=== PATIENT | male | born 1955 | race Caucasian/White ===

== ENCOUNTER 2016-10-23 07:49 | Inpatient (IN) | payer MEDICAID ==
[~2016-10-23] VITALS: Ht 172.7 cm; Wt 60.9 kg
[~2016-10-23 07:49] MED LIST: DIVA500T69 PO; IPRA4AER IH; OMEP20 PO; RISP3 PO
[2016-10-23] MEDS ORDERED: DiphenhydrAMINE HCL 50 MG/ML VIAL IM ONE (08:15)
[2016-10-23] MEDS ORDERED: LORazepam 2 MG/ML VIAL IM ONE (08:15)
[2016-10-23] MEDS ORDERED: HALOPERIDOL LACTATE 5 MG/ML VIAL IM ONE (08:15)
[2016-10-23] MEDS ORDERED: ZOLPIDEM TARTRATE 10 MG TABLET PO PRN (08:30)
[2016-10-23 09:20] LABS: BASOPHILS # (AUTO) 0.01 K/uL (0.00-0.20); BASOPHILS % (AUTO) 0.1 % (0.0-2.0); EOSINOPHILS # (AUTO) 0.12 K/uL (0.00-0.70); EOSINOPHILS % (AUTO) 1.82 % (1.0-6.0); HEMATOCRIT 43.7 % (41-53); HEMOGLOBIN 14.5 g/dL (13.5-17.5); LYMPHOCYTES # (AUTO) 0.8 K/uL (1.0-4.8); LYMPHOCYTES % (AUTO) 11.5 % (22.0-44.0); MEAN CORPUSCULAR HGB CONC 33.2 G/dL (31.0-37.0); MEAN CORPUSCULAR VOLUME 88 fL (80-100); MONOCYTES # (AUTO) 0.5 K/uL (0.1-1.0); NEUTROPHILS # (AUTO) 5.2 K/uL (1.8-7.7); NEUTROPHILS % (AUTO) 79.6 % (40.0-70.0); PLATELET COUNT (AUTO) 213 K/uL (150-450); RED BLOOD CELL COUNT(AUTO) 4.99 MIL/uL (4.50-5.90); RED CELL DISTRIBUTION WIDTH 14.9 % (11.5-14.5); WHITE BLOOD COUNT (AUTO) 6.6 K/uL (4.5-11.0)
[2016-10-23 09:31] LABS: ANION GAP 8 mmol/L (8-16); CALCIUM, TOTAL 8.7 mg/dL (8.8-10.5); CARBON DIOXIDE 27 mmol/L (22-29); CHLORIDE 103 mmol/L (98-107); GLOMERULAR FILTR. RATE CALC > 60 mL/min (>60); POTASSIUM 4.4 mmol/L (3.5-5.1); SODIUM SERUM 138 mmol/L (136-145); UREA NITROGEN, BLOOD 17 mg/dL (7-18)
[2016-10-23 09:37] LABS: ALANINE AMINOTRANSFERASE 26 U/L (12-78); ALBUMIN 3.1 g/dL (3.4-5.0); ASPARTATE AMINOTRANSFERASE 23 U/L (15-37); BILIRUBIN,TOTAL 0.4 mg/dL (0.1-1.0); TOTAL PROTEIN, SERUM 7.4 g/dL (6.4-8.2)
[2016-10-24] MEDS ORDERED: LORazepam 2 MG/ML VIAL IM ONE (11:00)
[2016-10-24] MEDS ORDERED: DiphenhydrAMINE HCL 50 MG/ML VIAL IM ONE (11:00)
[2016-10-24] MEDS ORDERED: HALOPERIDOL LACTATE 5 MG/ML VIAL IM ONE (11:00)
[2016-10-24 17:10] VITALS: BP 138/79
[2016-10-24] MEDS: ALBUTEROL SULFATE/IPRATROPIUM 100-20 MCG/SPRAY 4 GM INHALER IH SCH (20:35)
[2016-10-24] MEDS: DIVALPROEX SODIUM 500 MG ER TABLET PO SCH (20:35)
[2016-10-25 08:00] VITALS: BP_SYST 118; BP_SYST 125; BP_DIAS 78; BP_DIAS 88
[2016-10-25] MEDS: HALOPERIDOL 5 MG TABLET PO PRN (08:42)
[2016-10-25] MEDS: OMEPRAZOLE 20 MG CAPSULE PO SCH (08:42)
[2016-10-25] MEDS: LORazepam 2 MG TABLET PO PRN (08:42)
[2016-10-25] MEDS: NICOTINE 7 MG/24 HOUR PATCH TD SCH ×2 (08:44→09:00)
[2016-10-25] MEDS: ALBUTEROL SULFATE/IPRATROPIUM 100-20 MCG/SPRAY 4 GM INHALER IH SCH ×2 (12:33→20:40)
[2016-10-25] MEDS: RisperiDONE 2 MG TABLET PO SCH ×2 (12:34→16:30)
[2016-10-25 16:41] VITALS: BP 114/70
[2016-10-25] MEDS: DIVALPROEX SODIUM 500 MG ER TABLET PO SCH (20:40)
[2016-10-26] MEDS ORDERED: BENZOCAINE 10% 7 GM GEL TP PRN ×2 (07:44→07:45)
[2016-10-26 08:20] VITALS: BP 116/84
[2016-10-26] MEDS: ALBUTEROL SULFATE/IPRATROPIUM 100-20 MCG/SPRAY 4 GM INHALER IH SCH ×3 (09:00→20:51)
[2016-10-26] MEDS: NICOTINE 7 MG/24 HOUR PATCH TD SCH ×2 (09:00→09:29)
[2016-10-26] MEDS: OMEPRAZOLE 20 MG CAPSULE PO SCH (09:29)
[2016-10-26] MEDS: RisperiDONE 2 MG TABLET PO SCH ×2 (09:29→18:14)
[2016-10-26 16:00] VITALS: BP 118/76
[2016-10-26] MEDS: DIVALPROEX SODIUM 500 MG ER TABLET PO SCH (20:52)
[2016-10-27] MEDS: OMEPRAZOLE 20 MG CAPSULE PO SCH (09:05)
[2016-10-27] MEDS: RisperiDONE 2 MG TABLET PO SCH ×2 (09:06→17:55)
[2016-10-27] MEDS: NICOTINE 7 MG/24 HOUR PATCH TD SCH (09:06)
[2016-10-27] MEDS: LORazepam 2 MG TABLET PO PRN (09:07)
[2016-10-27] MEDS: ALBUTEROL SULFATE/IPRATROPIUM 100-20 MCG/SPRAY 4 GM INHALER IH SCH ×2 (09:08→20:08)
[2016-10-27 09:19] VITALS: BP 128/55
[2016-10-27 16:00] VITALS: BP 121/72
[2016-10-27] MEDS: DIVALPROEX SODIUM 500 MG ER TABLET PO SCH (20:08)
[2016-10-28] MEDS: RisperiDONE 2 MG TABLET PO SCH ×2 (08:32→17:08)
[2016-10-28] MEDS: OMEPRAZOLE 20 MG CAPSULE PO SCH (08:32)
[2016-10-28] MEDS: NICOTINE 7 MG/24 HOUR PATCH TD SCH (08:34)
[2016-10-28] MEDS: LORazepam 2 MG TABLET PO PRN (08:35)
[2016-10-28] MEDS: ALBUTEROL SULFATE/IPRATROPIUM 100-20 MCG/SPRAY 4 GM INHALER IH SCH ×2 (08:38→21:41)
[2016-10-28 09:11] VITALS: BP 124/78
[2016-10-28 16:10] VITALS: BP 121/75
[2016-10-28] MEDS: DIVALPROEX SODIUM 500 MG ER TABLET PO SCH (21:41)
[2016-10-29 08:04] VITALS: BP 114/79
[2016-10-29] MEDS: OMEPRAZOLE 20 MG CAPSULE PO SCH (08:35)
[2016-10-29] MEDS: RisperiDONE 2 MG TABLET PO SCH ×2 (08:35→17:12)
[2016-10-29] MEDS: ALBUTEROL SULFATE/IPRATROPIUM 100-20 MCG/SPRAY 4 GM INHALER IH SCH ×2 (08:35→21:03)
[2016-10-29] MEDS: LORazepam 2 MG TABLET PO PRN (08:37)
[2016-10-29] MEDS: NICOTINE 7 MG/24 HOUR PATCH TD SCH (09:00)
[2016-10-29] MEDS: DIVALPROEX SODIUM 500 MG ER TABLET PO SCH (21:03)
[2016-10-30 01:27] VITALS: BP 127/87
[2016-10-30 09:33] VITALS: BP 109/76
[2016-10-30] MEDS: ALBUTEROL SULFATE/IPRATROPIUM 100-20 MCG/SPRAY 4 GM INHALER IH SCH ×2 (10:09→21:01)
[2016-10-30] MEDS: NICOTINE 7 MG/24 HOUR PATCH TD SCH (10:09)
[2016-10-30] MEDS: OMEPRAZOLE 20 MG CAPSULE PO SCH (10:10)
[2016-10-30] MEDS: RisperiDONE 2 MG TABLET PO SCH ×2 (10:10→16:39)
[2016-10-30] MEDS: LORazepam 2 MG TABLET PO PRN (13:15)
[2016-10-30] MEDS: HALOPERIDOL 5 MG TABLET PO PRN (13:15)
[2016-10-30 17:25] VITALS: BP 106/78
[2016-10-30] MEDS: DIVALPROEX SODIUM 500 MG ER TABLET PO SCH (21:02)
[2016-10-31] MEDS: ALBUTEROL SULFATE/IPRATROPIUM 100-20 MCG/SPRAY 4 GM INHALER IH SCH ×2 (09:00→20:44)
[2016-10-31] MEDS: RisperiDONE 2 MG TABLET PO SCH ×2 (09:15→16:46)
[2016-10-31] MEDS: LORazepam 2 MG TABLET PO PRN (09:15)
[2016-10-31] MEDS: NICOTINE 7 MG/24 HOUR PATCH TD SCH (09:15)
[2016-10-31] MEDS: OMEPRAZOLE 20 MG CAPSULE PO SCH (09:15)
[2016-10-31] MEDS: HALOPERIDOL 5 MG TABLET PO PRN (09:15)
[2016-10-31 09:18] VITALS: BP 124/84
[2016-10-31 16:15] VITALS: BP 142/84
[2016-10-31] MEDS: DIVALPROEX SODIUM 500 MG ER TABLET PO SCH (20:44)
[2016-11-01 08:00] VITALS: BP 96/75
[2016-11-01] MEDS: NICOTINE 7 MG/24 HOUR PATCH TD SCH (09:00)
[2016-11-01] MEDS: ALBUTEROL SULFATE/IPRATROPIUM 100-20 MCG/SPRAY 4 GM INHALER IH SCH ×2 (09:00→20:24)
[2016-11-01] MEDS: OMEPRAZOLE 20 MG CAPSULE PO SCH (09:17)
[2016-11-01] MEDS: RisperiDONE 2 MG TABLET PO SCH ×2 (09:17→16:32)
[2016-11-01 10:43] VITALS: BP 118/76
[2016-11-01] MEDS: LORazepam 2 MG TABLET PO PRN (10:44)
[2016-11-01] MEDS: HALOPERIDOL 5 MG TABLET PO PRN (10:44)
[2016-11-01 17:02] VITALS: BP 114/78
[2016-11-01] MEDS: DIVALPROEX SODIUM 500 MG ER TABLET PO SCH (20:25)
[2016-11-02 08:13] VITALS: BP 103/75
[2016-11-02] MEDS: ALBUTEROL SULFATE/IPRATROPIUM 100-20 MCG/SPRAY 4 GM INHALER IH SCH ×2 (09:00→20:49)
[2016-11-02] MEDS: RisperiDONE 2 MG TABLET PO SCH ×2 (09:32→16:41)
[2016-11-02] MEDS: OMEPRAZOLE 20 MG CAPSULE PO SCH (09:32)
[2016-11-02] MEDS: HALOPERIDOL 5 MG TABLET PO PRN (09:32)
[2016-11-02] MEDS: NICOTINE 7 MG/24 HOUR PATCH TD SCH (09:32)
[2016-11-02] MEDS: LORazepam 2 MG TABLET PO PRN (09:32)
[2016-11-02 16:00] VITALS: BP 126/74
[2016-11-02] MEDS: DIVALPROEX SODIUM 500 MG ER TABLET PO SCH (20:49)
[2016-11-03 08:36] VITALS: BP 111/75
[2016-11-03] MEDS: ALBUTEROL SULFATE/IPRATROPIUM 100-20 MCG/SPRAY 4 GM INHALER IH SCH ×2 (08:42→20:28)
[2016-11-03] MEDS: RisperiDONE 2 MG TABLET PO SCH ×2 (08:42→18:30)
[2016-11-03] MEDS: OMEPRAZOLE 20 MG CAPSULE PO SCH (08:42)
[2016-11-03] MEDS: NICOTINE 7 MG/24 HOUR PATCH TD SCH (08:45)
[2016-11-03] MEDS: HALOPERIDOL 5 MG TABLET PO PRN (08:50)
[2016-11-03] MEDS: LORazepam 2 MG TABLET PO PRN (08:50)
[2016-11-03 16:00] VITALS: BP 121/76
[2016-11-03] MEDS: DIVALPROEX SODIUM 500 MG ER TABLET PO SCH (20:28)
[2016-11-04 08:00] VITALS: BP_SYST 74
[2016-11-04] MEDS: OMEPRAZOLE 20 MG CAPSULE PO SCH (08:16)
[2016-11-04] MEDS: RisperiDONE 2 MG TABLET PO SCH ×2 (08:16→17:28)
[2016-11-04] MEDS: NICOTINE 7 MG/24 HOUR PATCH TD SCH (09:00)
[2016-11-04] MEDS: ALBUTEROL SULFATE/IPRATROPIUM 100-20 MCG/SPRAY 4 GM INHALER IH SCH ×2 (09:00→21:35)
[2016-11-04 10:40] VITALS: BP 104/72
[2016-11-04] MEDS: HALOPERIDOL 5 MG TABLET PO PRN (12:57)
[2016-11-04] MEDS: LORazepam 2 MG TABLET PO PRN ×2 (12:57→17:28)
[2016-11-04 16:30] VITALS: BP 112/72
[2016-11-04] MEDS: DIVALPROEX SODIUM 500 MG ER TABLET PO SCH (21:35)
[2016-11-05 08:15] VITALS: BP 112/74
[2016-11-05] MEDS: OMEPRAZOLE 20 MG CAPSULE PO SCH (08:57)
[2016-11-05] MEDS: RisperiDONE 2 MG TABLET PO SCH ×2 (08:57→16:34)
[2016-11-05] MEDS: NICOTINE 7 MG/24 HOUR PATCH TD SCH (09:00)
[2016-11-05] MEDS: ALBUTEROL SULFATE/IPRATROPIUM 100-20 MCG/SPRAY 4 GM INHALER IH SCH ×2 (09:00→21:00)
[2016-11-05 16:00] VITALS: BP 123/78
[2016-11-05] MEDS: DIVALPROEX SODIUM 500 MG ER TABLET PO SCH (21:30)
[2016-11-06 08:02] VITALS: BP 123/83
[2016-11-06] MEDS: OMEPRAZOLE 20 MG CAPSULE PO SCH (08:35)
[2016-11-06] MEDS: ALBUTEROL SULFATE/IPRATROPIUM 100-20 MCG/SPRAY 4 GM INHALER IH SCH ×2 (08:35→20:47)
[2016-11-06] MEDS: HALOPERIDOL 5 MG TABLET PO PRN (08:35)
[2016-11-06] MEDS: RisperiDONE 3 MG TABLET PO SCH ×2 (08:35→16:30)
[2016-11-06] MEDS: LORazepam 2 MG TABLET PO PRN (08:35)
[2016-11-06] MEDS: NICOTINE 7 MG/24 HOUR PATCH TD SCH (09:00)
[2016-11-06 16:50] VITALS: BP 162/92
[2016-11-06] MEDS: DIVALPROEX SODIUM 500 MG ER TABLET PO SCH (20:46)
[2016-11-07 08:02] VITALS: BP 130/88
[2016-11-07] MEDS: RisperiDONE 3 MG TABLET PO SCH ×2 (08:34→16:34)
[2016-11-07] MEDS: ALBUTEROL SULFATE/IPRATROPIUM 100-20 MCG/SPRAY 4 GM INHALER IH SCH ×2 (08:34→20:25)
[2016-11-07] MEDS: HALOPERIDOL 5 MG TABLET PO PRN (08:34)
[2016-11-07] MEDS: LORazepam 2 MG TABLET PO PRN (08:34)
[2016-11-07] MEDS: OMEPRAZOLE 20 MG CAPSULE PO SCH (08:34)
[2016-11-07] MEDS: NICOTINE 7 MG/24 HOUR PATCH TD SCH (09:00)
[2016-11-07 16:20] VITALS: BP 129/79
[2016-11-07] MEDS: DIVALPROEX SODIUM 500 MG ER TABLET PO SCH (20:25)
[2016-11-08] MEDS: RisperiDONE 3 MG TABLET PO SCH ×2 (08:40→16:50)
[2016-11-08] MEDS: OMEPRAZOLE 20 MG CAPSULE PO SCH (08:40)
[2016-11-08 08:44] VITALS: BP 112/68
[2016-11-08] MEDS: ALBUTEROL SULFATE/IPRATROPIUM 100-20 MCG/SPRAY 4 GM INHALER IH SCH ×2 (09:00→20:40)
[2016-11-08] MEDS: NICOTINE 7 MG/24 HOUR PATCH TD SCH (09:00)
[2016-11-08 16:00] VITALS: BP 106/70
[2016-11-08] MEDS: DIVALPROEX SODIUM 500 MG ER TABLET PO SCH (20:40)
[2016-11-09] MEDS: RisperiDONE 3 MG TABLET PO SCH ×2 (08:47→17:37)
[2016-11-09] MEDS: ALBUTEROL SULFATE/IPRATROPIUM 100-20 MCG/SPRAY 4 GM INHALER IH SCH ×2 (08:47→21:00)
[2016-11-09] MEDS: OMEPRAZOLE 20 MG CAPSULE PO SCH (08:47)
[2016-11-09] MEDS: NICOTINE 7 MG/24 HOUR PATCH TD SCH (09:08)
[2016-11-09 09:53] VITALS: BP 92/65
[2016-11-09] MEDS: DIVALPROEX SODIUM 500 MG ER TABLET PO SCH ×2 (13:25→21:00)
[2016-11-09 16:15] VITALS: BP 110/73
[2016-11-09] MEDS: LORazepam 2 MG TABLET PO PRN (19:04)
[2016-11-09] MEDS: HALOPERIDOL 5 MG TABLET PO PRN (19:04)
[2016-11-10 08:45] VITALS: BP 131/102
[2016-11-10] MEDS: NICOTINE 7 MG/24 HOUR PATCH TD SCH (09:00)
[2016-11-10] MEDS: OMEPRAZOLE 20 MG CAPSULE PO SCH (09:05)
[2016-11-10] MEDS: DIVALPROEX SODIUM 500 MG ER TABLET PO SCH ×2 (09:05→21:13)
[2016-11-10] MEDS: ALBUTEROL SULFATE/IPRATROPIUM 100-20 MCG/SPRAY 4 GM INHALER IH SCH ×2 (09:06→21:13)
[2016-11-10] MEDS: RisperiDONE 3 MG TABLET PO SCH ×2 (09:06→17:47)
[2016-11-10 16:00] VITALS: BP 121/72
[2016-11-10] MEDS: LORazepam 2 MG TABLET PO PRN (17:47)
[2016-11-11] MEDS: RisperiDONE 3 MG TABLET PO SCH ×2 (08:43→16:03)
[2016-11-11] MEDS: OMEPRAZOLE 20 MG CAPSULE PO SCH (08:43)
[2016-11-11] MEDS: DIVALPROEX SODIUM 500 MG ER TABLET PO SCH ×2 (08:43→20:18)
[2016-11-11] MEDS: ALBUTEROL SULFATE/IPRATROPIUM 100-20 MCG/SPRAY 4 GM INHALER IH SCH ×2 (08:44→20:17)
[2016-11-11] MEDS: NICOTINE 7 MG/24 HOUR PATCH TD SCH (08:48)
[2016-11-11 16:34] VITALS: BP 116/77
[2016-11-12 09:06] VITALS: BP 115/82
[2016-11-12] MEDS: ALBUTEROL SULFATE/IPRATROPIUM 100-20 MCG/SPRAY 4 GM INHALER IH SCH ×2 (09:17→21:43)
[2016-11-12] MEDS: DIVALPROEX SODIUM 500 MG ER TABLET PO SCH ×2 (09:17→21:44)
[2016-11-12] MEDS: OMEPRAZOLE 20 MG CAPSULE PO SCH (09:17)
[2016-11-12] MEDS: RisperiDONE 3 MG TABLET PO SCH ×2 (09:17→17:15)
[2016-11-12] MEDS: NICOTINE 7 MG/24 HOUR PATCH TD SCH (09:24)
[2016-11-12 16:00] VITALS: BP 103/71
[2016-11-13 08:20] VITALS: BP 109/77
[2016-11-13] MEDS: ALBUTEROL SULFATE/IPRATROPIUM 100-20 MCG/SPRAY 4 GM INHALER IH SCH ×2 (10:16→20:24)
[2016-11-13] MEDS: NICOTINE 7 MG/24 HOUR PATCH TD SCH (10:16)
[2016-11-13] MEDS: DIVALPROEX SODIUM 500 MG ER TABLET PO SCH ×2 (10:16→20:24)
[2016-11-13] MEDS: LORazepam 2 MG TABLET PO PRN (10:16)
[2016-11-13] MEDS: RisperiDONE 3 MG TABLET PO SCH ×2 (10:16→17:00)
[2016-11-13] MEDS: OMEPRAZOLE 20 MG CAPSULE PO SCH (10:16)
[2016-11-13] MEDS: HALOPERIDOL 5 MG TABLET PO PRN (10:16)
[2016-11-13 16:00] VITALS: BP 119/71
[2016-11-14 08:00] VITALS: BP 90/70
[2016-11-14] MEDS: ALBUTEROL SULFATE/IPRATROPIUM 100-20 MCG/SPRAY 4 GM INHALER IH SCH ×2 (09:43→20:34)
[2016-11-14] MEDS: NICOTINE 7 MG/24 HOUR PATCH TD SCH (09:43)
[2016-11-14] MEDS: OMEPRAZOLE 20 MG CAPSULE PO SCH (09:44)
[2016-11-14] MEDS: RisperiDONE 3 MG TABLET PO SCH ×2 (09:44→16:28)
[2016-11-14] MEDS: HALOPERIDOL 5 MG TABLET PO PRN (09:44)
[2016-11-14] MEDS: LORazepam 2 MG TABLET PO PRN (09:44)
[2016-11-14] MEDS: DIVALPROEX SODIUM 500 MG ER TABLET PO SCH ×2 (09:44→20:34)
[2016-11-14 16:34] VITALS: BP 132/82
[2016-11-15] MEDS: ALBUTEROL SULFATE/IPRATROPIUM 100-20 MCG/SPRAY 4 GM INHALER IH SCH ×2 (09:46→21:43)
[2016-11-15] MEDS: RisperiDONE 3 MG TABLET PO SCH ×2 (09:46→18:00)
[2016-11-15] MEDS: OMEPRAZOLE 20 MG CAPSULE PO SCH (09:47)
[2016-11-15] MEDS: DIVALPROEX SODIUM 500 MG ER TABLET PO SCH ×2 (09:47→21:43)
[2016-11-15] MEDS: NICOTINE 7 MG/24 HOUR PATCH TD SCH (09:51)
[2016-11-15 16:27] VITALS: BP 116/73
[2016-11-16 09:06] VITALS: BP 102/76
[2016-11-16] MEDS: OMEPRAZOLE 20 MG CAPSULE PO SCH (10:41)
[2016-11-16] MEDS: DIVALPROEX SODIUM 500 MG ER TABLET PO SCH ×2 (10:42→22:54)
[2016-11-16] MEDS: RisperiDONE 3 MG TABLET PO SCH ×2 (10:42→16:21)
[2016-11-16] MEDS: ALBUTEROL SULFATE/IPRATROPIUM 100-20 MCG/SPRAY 4 GM INHALER IH SCH ×2 (10:42→22:53)
[2016-11-16] MEDS: NICOTINE 7 MG/24 HOUR PATCH TD SCH (10:45)
[2016-11-16 16:00] VITALS: BP 104/72
[2016-11-16] MEDS ORDERED: BENZOCAINE 10% 7 GM GEL TP PRN (16:45)
[2016-11-17 08:47] VITALS: BP 125/88
[2016-11-17] MEDS: OMEPRAZOLE 20 MG CAPSULE PO SCH (09:26)
[2016-11-17] MEDS: DIVALPROEX SODIUM 500 MG ER TABLET PO SCH ×2 (09:26→20:31)
[2016-11-17] MEDS: RisperiDONE 3 MG TABLET PO SCH ×2 (09:27→17:19)
[2016-11-17] MEDS: NICOTINE 7 MG/24 HOUR PATCH TD SCH (09:27)
[2016-11-17] MEDS: ALBUTEROL SULFATE/IPRATROPIUM 100-20 MCG/SPRAY 4 GM INHALER IH SCH ×2 (09:27→20:31)
[2016-11-17] MEDS: BuPROPion HCL 150 MG SR TABLET PO SCH (09:28)
[2016-11-17 16:44] VITALS: BP 118/78
[2016-11-18 09:45] VITALS: BP 122/87
[2016-11-18] MEDS: BuPROPion HCL 150 MG SR TABLET PO SCH (10:36)
[2016-11-18] MEDS: OMEPRAZOLE 20 MG CAPSULE PO SCH (10:36)
[2016-11-18] MEDS: RisperiDONE 3 MG TABLET PO SCH ×2 (10:36→17:01)
[2016-11-18] MEDS: HALOPERIDOL 5 MG TABLET PO PRN (10:36)
[2016-11-18] MEDS: DIVALPROEX SODIUM 500 MG ER TABLET PO SCH ×2 (10:36→21:31)
[2016-11-18] MEDS: NICOTINE 7 MG/24 HOUR PATCH TD SCH (10:38)
[2016-11-18] MEDS: ALBUTEROL SULFATE/IPRATROPIUM 100-20 MCG/SPRAY 4 GM INHALER IH SCH ×2 (10:38→21:30)
[2016-11-18 16:32] VITALS: BP 124/85
[2016-11-19 08:00] VITALS: BP 132/88
[2016-11-19] MEDS: RisperiDONE 3 MG TABLET PO SCH ×2 (10:47→18:04)
[2016-11-19] MEDS: OMEPRAZOLE 20 MG CAPSULE PO SCH (10:47)
[2016-11-19] MEDS: DIVALPROEX SODIUM 500 MG ER TABLET PO SCH ×2 (10:48→21:40)
[2016-11-19] MEDS: BuPROPion HCL 150 MG SR TABLET PO SCH (10:48)
[2016-11-19] MEDS: NICOTINE 7 MG/24 HOUR PATCH TD SCH (10:48)
[2016-11-19] MEDS: ALBUTEROL SULFATE/IPRATROPIUM 100-20 MCG/SPRAY 4 GM INHALER IH SCH ×2 (10:48→21:41)
[2016-11-19 16:00] VITALS: BP 131/78
[2016-11-20] MEDS: DIVALPROEX SODIUM 500 MG ER TABLET PO SCH ×2 (09:46→20:41)
[2016-11-20] MEDS: RisperiDONE 3 MG TABLET PO SCH ×2 (09:46→16:21)
[2016-11-20] MEDS: ALBUTEROL SULFATE/IPRATROPIUM 100-20 MCG/SPRAY 4 GM INHALER IH SCH ×2 (09:46→20:41)
[2016-11-20] MEDS: BuPROPion HCL 150 MG SR TABLET PO SCH (09:47)
[2016-11-20] MEDS: OMEPRAZOLE 20 MG CAPSULE PO SCH (09:47)
[2016-11-20] MEDS: NICOTINE 7 MG/24 HOUR PATCH TD SCH (09:51)
[2016-11-20 10:06] VITALS: BP 141/88
[2016-11-20 17:06] VITALS: BP 112/73
[2016-11-21] MEDS: DIVALPROEX SODIUM 500 MG ER TABLET PO SCH ×2 (10:10→20:36)
[2016-11-21] MEDS: ALBUTEROL SULFATE/IPRATROPIUM 100-20 MCG/SPRAY 4 GM INHALER IH SCH ×2 (10:10→20:35)
[2016-11-21] MEDS: BuPROPion HCL 150 MG SR TABLET PO SCH (10:10)
[2016-11-21] MEDS: RisperiDONE 3 MG TABLET PO SCH ×2 (10:10→16:32)
[2016-11-21] MEDS: OMEPRAZOLE 20 MG CAPSULE PO SCH (10:10)
[2016-11-21] MEDS: NICOTINE 7 MG/24 HOUR PATCH TD SCH (10:14)
[2016-11-21 12:34] VITALS: BP 104/63
[2016-11-21 16:05] VITALS: BP 125/91
[2016-11-22] MEDS: NICOTINE 7 MG/24 HOUR PATCH TD SCH (09:00)
[2016-11-22 09:29] VITALS: BP 110/73
[2016-11-22] MEDS: OMEPRAZOLE 20 MG CAPSULE PO SCH (09:51)
[2016-11-22] MEDS: ALBUTEROL SULFATE/IPRATROPIUM 100-20 MCG/SPRAY 4 GM INHALER IH SCH ×2 (09:51→22:10)
[2016-11-22] MEDS: DIVALPROEX SODIUM 500 MG ER TABLET PO SCH ×2 (09:51→22:11)
[2016-11-22] MEDS: RisperiDONE 3 MG TABLET PO SCH ×2 (09:51→16:18)
[2016-11-22] MEDS: LORazepam 2 MG TABLET PO PRN (09:51)
[2016-11-22] MEDS: BuPROPion HCL 150 MG SR TABLET PO SCH (09:51)
[2016-11-22] MEDS ORDERED: ACETAMINOPHEN 325 MG TABLET PO PRN (12:45)
[2016-11-22 16:00] VITALS: BP 121/89
[2016-11-23 08:00] VITALS: BP 128/85
[2016-11-23] MEDS: BuPROPion HCL 150 MG SR TABLET PO SCH (08:11)
[2016-11-23] MEDS: LORazepam 2 MG TABLET PO PRN (08:12)
[2016-11-23] MEDS: RisperiDONE 3 MG TABLET PO SCH ×2 (08:12→18:03)
[2016-11-23] MEDS: DIVALPROEX SODIUM 500 MG ER TABLET PO SCH ×2 (08:12→21:01)
[2016-11-23] MEDS: OMEPRAZOLE 20 MG CAPSULE PO SCH (08:12)
[2016-11-23] MEDS: ALBUTEROL SULFATE/IPRATROPIUM 100-20 MCG/SPRAY 4 GM INHALER IH SCH ×2 (08:13→21:00)
[2016-11-23] MEDS: NICOTINE 7 MG/24 HOUR PATCH TD SCH (09:00)
[2016-11-23 16:00] VITALS: BP 130/87
[2016-11-24 07:16] VITALS: BP 149/82
[2016-11-24] MEDS: ALBUTEROL SULFATE/IPRATROPIUM 100-20 MCG/SPRAY 4 GM INHALER IH SCH ×2 (10:39→21:04)
[2016-11-24] MEDS: BuPROPion HCL 150 MG SR TABLET PO SCH (10:40)
[2016-11-24] MEDS: RisperiDONE 4 MG TABLET PO SCH ×2 (10:40→17:19)
[2016-11-24] MEDS: OMEPRAZOLE 20 MG CAPSULE PO SCH (10:40)
[2016-11-24] MEDS: DIVALPROEX SODIUM 500 MG ER TABLET PO SCH ×2 (10:40→21:03)
[2016-11-24] MEDS: NICOTINE 7 MG/24 HOUR PATCH TD SCH (10:40)
[2016-11-24 16:00] VITALS: BP 125/78
[2016-11-25 06:28] VITALS: BP 147/76
[2016-11-25 08:07] VITALS: BP 101/60
[2016-11-25] MEDS: LORazepam 2 MG TABLET PO PRN (08:17)
[2016-11-25] MEDS: OMEPRAZOLE 20 MG CAPSULE PO SCH (08:17)
[2016-11-25] MEDS: RisperiDONE 4 MG TABLET PO SCH ×2 (08:17→16:12)
[2016-11-25] MEDS: DIVALPROEX SODIUM 500 MG ER TABLET PO SCH ×2 (08:17→20:14)
[2016-11-25] MEDS: ALBUTEROL SULFATE/IPRATROPIUM 100-20 MCG/SPRAY 4 GM INHALER IH SCH ×2 (08:18→20:14)
[2016-11-25] MEDS: BuPROPion HCL 150 MG SR TABLET PO SCH (08:23)
[2016-11-25] MEDS: NICOTINE 7 MG/24 HOUR PATCH TD SCH (08:26)
[2016-11-25 16:30] VITALS: BP 117/68
[2016-11-26 08:25] VITALS: BP 113/66
[2016-11-26] MEDS: HALOPERIDOL 5 MG TABLET PO PRN (08:42)
[2016-11-26] MEDS: LORazepam 2 MG TABLET PO PRN (08:42)
[2016-11-26] MEDS: RisperiDONE 4 MG TABLET PO SCH (08:42)
[2016-11-26] MEDS: BuPROPion HCL 150 MG SR TABLET PO SCH (08:42)
[2016-11-26] MEDS: OMEPRAZOLE 20 MG CAPSULE PO SCH (08:42)
[2016-11-26] MEDS: DIVALPROEX SODIUM 500 MG ER TABLET PO SCH (08:42)
[2016-11-26] MEDS: ALBUTEROL SULFATE/IPRATROPIUM 100-20 MCG/SPRAY 4 GM INHALER IH SCH (08:46)
[2016-11-26] MEDS: NICOTINE 7 MG/24 HOUR PATCH TD SCH (08:46)
[2016-11-26] MEDS ORDERED: BUPR150T3 PO (09:11)
[2016-11-26] MEDS ORDERED: DIVA500T69 PO (09:11)
== END 2016-11-26 12:00 | disposition home or self-care (01) | DRG 750 ==
LOC: EMS 07:51 → 3EC 10-24 16:45
PROVIDERS: ADMIT Psychiatry & Neurology Child & Adolescent Psychiatry; ATTEND Psychiatry & Neurology Child & Adolescent Psychiatry
DX: F20.0 Paranoid schizophrenia (principal); J44.9 Chronic obstructive pulmonary disease, unspecified; I10 Essential (primary) hypertension; K21.9 Gastro-esophageal reflux disease without esophagitis; G40.909 Epilepsy, unspecified, not intractable, without status epilepticus; F41.9 Anxiety disorder, unspecified; F17.210 Nicotine dependence, cigarettes, uncomplicated; Z91.14 Patient's other noncompliance with medication regimen; Z59.0 Homelessness; Z79.899 Other long term (current) drug therapy; Z98.890 Other specified postprocedural states; Z87.11 Personal history of peptic ulcer disease
CPT/HCPCS: 87081; 96372; 99285; G0480; J1200; J1630; J2060

== ENCOUNTER 2017-02-21 09:10 | Emergency (ER) | payer MEDICAID ==
[~2017-02-21] VITALS: Ht 170.2 cm; Wt 59.0 kg
[~2017-02-21 09:10] MED LIST changes: +BUPR150T3 PO
[2017-02-21 09:14] VITALS: BP 109/60
[2017-02-21 09:49] LABS: BASOPHILS % (AUTO) 0.4 % (0.0-2.0); EOSINOPHILS % (AUTO) 2.1 % (1.0-6.0); HEMOGLOBIN 16.4 g/dL (13.5-17.5); LYMPHOCYTES # (AUTO) 1.7 K/uL (1.0-4.8); LYMPHOCYTES % (AUTO) 25.3 % (22.0-44.0); MEAN CORPUSCULAR HGB CONC 32.2 G/dL (31.0-37.0); MEAN CORPUSCULAR VOLUME 90 fL (80-100); MONOCYTES # (AUTO) 0.6 K/uL (0.1-1.0); MONOCYTES % (AUTO) 8.5 % (2.0-9.0); NEUTROPHILS # (AUTO) 4.3 K/uL (1.8-7.7); NEUTROPHILS % (AUTO) 63.7 % (40.0-70.0); PLATELET COUNT (AUTO) 250 K/uL (150-450); RED BLOOD CELL COUNT(AUTO) 5.65 MIL/uL (4.50-5.90); RED CELL DISTRIBUTION WIDTH 14.8 % (11.5-14.5); WHITE BLOOD COUNT (AUTO) 6.7 K/uL (4.5-11.0)
[2017-02-21 10:01] LABS: ANION GAP 10 mmol/L (8-16); CALCIUM, TOTAL 9.4 mg/dL (8.8-10.5); CARBON DIOXIDE 28 mmol/L (22-29); CHLORIDE 101 mmol/L (98-107); CREATININE 1.55 mg/dL (0.60-1.30); GLOMERULAR FILTR. RATE CALC 46 mL/min (>60); POTASSIUM 4.1 mmol/L (3.5-5.1); SODIUM SERUM 139 mmol/L (136-145); UREA NITROGEN, BLOOD 23 mg/dL (7-18)
[2017-02-21 10:08] LABS: ALANINE AMINOTRANSFERASE 22 U/L (12-78); ALBUMIN 4.1 g/dL (3.4-5.0); ASPARTATE AMINOTRANSFERASE 18 U/L (15-37); BILIRUBIN,TOTAL 0.6 mg/dL (0.1-1.0); TOTAL PROTEIN, SERUM 8.7 g/dL (6.4-8.2)
[2017-02-21 10:09] LABS: VALPROIC ACID < 3 mcg/mL (50-100)
== END 2017-02-21 11:33 | disposition left against medical advice (07) ==
LOC: EMS 09:13
DX: R10.31 Right lower quadrant pain (principal); K02.9 Dental caries, unspecified; M79.604 Pain in right leg; J44.9 Chronic obstructive pulmonary disease, unspecified; K21.9 Gastro-esophageal reflux disease without esophagitis; F17.210 Nicotine dependence, cigarettes, uncomplicated
CPT/HCPCS: 99284

== ENCOUNTER 2017-02-24 04:42 | Emergency (ER) | payer MEDICAID ==
[~2017-02-24] VITALS: Ht 170.2 cm; Wt 59.1 kg
[2017-02-24 05:27] LABS: APPEARANCE,URINE CLOUDY (CLEAR); GLUCOSE, URINE (UA) NEGATIVE (NEGATIVE); KETONES,URINE TRACE mg/dL (NEGATIVE); LEUKOCYTE ESTERASE ,URINE NEGATIVE (NEGATIVE); OCCULT BLOOD,URINE NEGATIVE (NEGATIVE); PH,URINE 5.5 (5.0-8.0); PROTEIN,URINE POS 1+ (NEGATIVE)
[2017-02-24 05:42] VITALS: BP 144/90
[2017-02-24] MEDS ORDERED: KETOROLAC TROMETHAMINE 30 MG/ML VIAL IM ONE (05:45)
[2017-02-24 05:49] LABS: CALCIUM OXALATE CRYSTALS,UR Many /LPF (None Seen); SQUAMOUS EPITHELIAL CELL,UR Few /LPF (None Seen)
== END 2017-02-24 06:02 | disposition home or self-care (01) ==
LOC: EMS 04:43
DX: N50.811 Right testicular pain (principal); J44.9 Chronic obstructive pulmonary disease, unspecified; K21.9 Gastro-esophageal reflux disease without esophagitis; F20.9 Schizophrenia, unspecified; F17.210 Nicotine dependence, cigarettes, uncomplicated
CPT/HCPCS: 99284

== ENCOUNTER 2017-04-24 15:45 | Emergency (ER) | payer MEDICAID ==
[~2017-04-24] VITALS: Ht 172.7 cm; Wt 59.1 kg
[2017-04-24 15:49] VITALS: BP 114/79
== END 2017-04-24 15:49 | disposition left against medical advice (07) ==
LOC: EMS 15:47
DX: Z00.8 Encounter for other general examination (principal); F20.9 Schizophrenia, unspecified; J44.9 Chronic obstructive pulmonary disease, unspecified; K21.9 Gastro-esophageal reflux disease without esophagitis; F17.210 Nicotine dependence, cigarettes, uncomplicated; Z53.21 Procedure and treatment not carried out due to patient leaving prior to being seen by health care provider

== ENCOUNTER 2017-04-25 18:33 | Emergency (ER) | payer MEDICAID ==
[~2017-04-25] VITALS: Ht 167.6 cm; Wt 72.7 kg
[2017-04-25 19:48] LABS: BASOPHILS # (AUTO) 0.04 K/uL (0.00-0.20); BASOPHILS % (AUTO) 0.6 % (0.0-2.0); EOSINOPHILS # (AUTO) 0.09 K/uL (0.00-0.70); EOSINOPHILS % (AUTO) 1.22 % (1.0-6.0); HEMATOCRIT 43.4 % (41-53); HEMOGLOBIN 14.2 g/dL (13.5-17.5); LYMPHOCYTES # (AUTO) 1.7 K/uL (1.0-4.8); LYMPHOCYTES % (AUTO) 24.6 % (22.0-44.0); MEAN CORPUSCULAR HGB CONC 32.7 G/dL (31.0-37.0); MEAN CORPUSCULAR VOLUME 92 fL (80-100); MONOCYTES # (AUTO) 0.7 K/uL (0.1-1.0); MONOCYTES % (AUTO) 10.2 % (2.0-9.0); NEUTROPHILS # (AUTO) 4.4 K/uL (1.8-7.7); NEUTROPHILS % (AUTO) 63.3 % (40.0-70.0); PLATELET COUNT (AUTO) 215 K/uL (150-450); RED BLOOD CELL COUNT(AUTO) 4.73 MIL/uL (4.50-5.90); RED CELL DISTRIBUTION WIDTH 15.4 % (11.5-14.5)
[2017-04-25 19:53] LABS: ANION GAP 9 mmol/L (8-16); CALCIUM, TOTAL 9.5 mg/dL (8.8-10.5); CARBON DIOXIDE 28 mmol/L (22-29); CHLORIDE 103 mmol/L (98-107); CREATININE 1.58 mg/dL (0.60-1.30); GLOMERULAR FILTR. RATE CALC 45 mL/min (>60); POTASSIUM 3.8 mmol/L (3.5-5.1); SODIUM SERUM 140 mmol/L (136-145); UREA NITROGEN, BLOOD 27 mg/dL (7-18)
[2017-04-25 19:59] LABS: ALANINE AMINOTRANSFERASE 18 U/L (12-78); ALBUMIN 3.6 g/dL (3.4-5.0); ASPARTATE AMINOTRANSFERASE 17 U/L (15-37); BILIRUBIN,TOTAL 0.5 mg/dL (0.1-1.0); TOTAL PROTEIN, SERUM 7.3 g/dL (6.4-8.2)
[2017-04-25] MEDS ORDERED: AMOX TR/POT CLAV 875 MG/125 MG TABLET PO ONE (20:30)
[2017-04-25 21:00] VITALS: BP 133/85
== END 2017-04-25 21:04 | disposition home or self-care (01) ==
LOC: EMS 18:36
DX: S01.502A Unspecified open wound of oral cavity, initial encounter (principal); F15.10 Other stimulant abuse, uncomplicated; F20.0 Paranoid schizophrenia; F17.210 Nicotine dependence, cigarettes, uncomplicated; I10 Essential (primary) hypertension; J44.9 Chronic obstructive pulmonary disease, unspecified; K21.9 Gastro-esophageal reflux disease without esophagitis; X58.XXXA Exposure to other specified factors, initial encounter; Y93.89 Activity, other specified; Y92.89 Other specified places as the place of occurrence of the external cause; Y99.9 Unspecified external cause status
CPT/HCPCS: 36415; 80053; 80307; 85025; 99284; 99406; G0480

== ENCOUNTER 2017-04-26 02:32 | Emergency (ER) | payer MEDICAID | END 2017-04-26 04:01 | disposition left against medical advice (07) | LOC: EMS 02:34 | DX: R44.0 Auditory hallucinations (principal); F20.9 Schizophrenia, unspecified; J44.9 Chronic obstructive pulmonary disease, unspecified; K21.9 Gastro-esophageal reflux disease without esophagitis; F17.210 Nicotine dependence, cigarettes, uncomplicated; Z53.21 Procedure and treatment not carried out due to patient leaving prior to being seen by health care provider ==

== ENCOUNTER 2017-04-26 07:56 | Emergency (ER) | payer MEDICAID ==
[~2017-04-26] VITALS: Ht 170.2 cm; Wt 66.0 kg
[2017-04-26 09:31] LABS: BASOPHILS # (AUTO) 0.02 K/uL (0.00-0.20); BASOPHILS % (AUTO) 0.4 % (0.0-2.0); EOSINOPHILS # (AUTO) 0.12 K/uL (0.00-0.70); EOSINOPHILS % (AUTO) 2.69 % (1.0-6.0); HEMATOCRIT 43.9 % (41-53); HEMOGLOBIN 14.4 g/dL (13.5-17.5); LYMPHOCYTES # (AUTO) 1.1 K/uL (1.0-4.8); LYMPHOCYTES % (AUTO) 24.1 % (22.0-44.0); MEAN CORPUSCULAR HGB CONC 32.9 G/dL (31.0-37.0); MEAN CORPUSCULAR VOLUME 91 fL (80-100); MONOCYTES # (AUTO) 0.5 K/uL (0.1-1.0); MONOCYTES % (AUTO) 10.7 % (2.0-9.0); NEUTROPHILS # (AUTO) 2.8 K/uL (1.8-7.7); NEUTROPHILS % (AUTO) 62.2 % (40.0-70.0); PLATELET COUNT (AUTO) 210 K/uL (150-450); RED BLOOD CELL COUNT(AUTO) 4.81 MIL/uL (4.50-5.90); RED CELL DISTRIBUTION WIDTH 15.4 % (11.5-14.5); WHITE BLOOD COUNT (AUTO) 4.6 K/uL (4.5-11.0)
[2017-04-26 09:50] LABS: ANION GAP 5 mmol/L (8-16); CARBON DIOXIDE 30 mmol/L (22-29); CHLORIDE 104 mmol/L (98-107); CREATININE 1.43 mg/dL (0.60-1.30); GLOMERULAR FILTR. RATE CALC 50 mL/min (>60); POTASSIUM 4.3 mmol/L (3.5-5.1); SODIUM SERUM 139 mmol/L (136-145); UREA NITROGEN, BLOOD 25 mg/dL (7-18)
[2017-04-26 09:56] LABS: ALANINE AMINOTRANSFERASE 16 U/L (12-78); ALBUMIN 3.5 g/dL (3.4-5.0); ASPARTATE AMINOTRANSFERASE 19 U/L (15-37); BILIRUBIN,TOTAL 0.6 mg/dL (0.1-1.0); TOTAL PROTEIN, SERUM 7.2 g/dL (6.4-8.2)
[2017-04-26] MEDS ORDERED: LIDOCAINE HCL/PF 1% 2 ML VIAL IM ONE (13:15)
[2017-04-26] MEDS ORDERED: CefTRIAXone SODIUM 1 GM/VIAL IM ONE (13:15)
[2017-04-26] MEDS ORDERED: OxyCODONE HCL/ACETAMINOPHEN 5-325 MG TABLET PO ONE (13:15)
[2017-04-26 13:51] VITALS: BP 114/77
== END 2017-04-26 14:12 | disposition home or self-care (01) ==
LOC: EMS 07:58
DX: S01.512A Laceration without foreign body of oral cavity, initial encounter (principal); F20.0 Paranoid schizophrenia; J44.9 Chronic obstructive pulmonary disease, unspecified; K21.9 Gastro-esophageal reflux disease without esophagitis; F17.210 Nicotine dependence, cigarettes, uncomplicated; X58.XXXA Exposure to other specified factors, initial encounter; Y93.89 Activity, other specified; Y92.89 Other specified places as the place of occurrence of the external cause; Y99.8 Other external cause status
CPT/HCPCS: 36415; 80053; 85025; 96372; 99284; G0480; J0696; J3490

== ENCOUNTER 2017-06-26 14:28 | Emergency (ER) | payer MEDICAID ==
[~2017-06-26] VITALS: Ht 170.2 cm; Wt 63.6 kg
[2017-06-26] MEDS ORDERED: CeFAZolin 2 GM/DEXTROSE 50 ML IV ONE (15:00)
[2017-06-26] MEDS ORDERED: SODIUM CHLORIDE 0.9% 1,000 ML IV ONE (15:00)
[2017-06-26] MEDS ORDERED: DEXAMETHASONE SOD PHOS 4 MG/ML 5 ML VIAL IVP ONE (15:00)
[2017-06-26] MEDS ORDERED: SODIUM CHLORIDE 0.9% 100 ML ONE (15:06)
[2017-06-26] MEDS ORDERED: IOVERSOL 350 MG/ML 100 ML VIAL ONE (15:06)
[2017-06-26] MEDS ORDERED: CLINDAMYCIN 600 MG/D5% WATER 50 ML IV ONE (15:15)
[2017-06-26 15:24] LABS: BASOPHILS % (AUTO) 0.3 % (0.0-2.0); EOSINOPHILS % (AUTO) 1.9 % (1.0-6.0); HEMATOCRIT 42.2 % (41-53); HEMOGLOBIN 14.4 g/dL (13.5-17.5); LYMPHOCYTES # (AUTO) 1.3 K/uL (1.0-4.8); LYMPHOCYTES % (AUTO) 16.9 % (22.0-44.0); MEAN CORPUSCULAR HEMOGLOBIN 30.9 pg (26.0-34.0); MEAN CORPUSCULAR VOLUME 91 fL (80-100); MONOCYTES # (AUTO) 0.7 K/uL (0.1-1.0); NEUTROPHILS # (AUTO) 5.6 K/uL (1.8-7.7); NEUTROPHILS % (AUTO) 71.9 % (40.0-70.0); PLATELET COUNT (AUTO) 265 K/uL (150-450); RED BLOOD CELL COUNT(AUTO) 4.64 MIL/uL (4.50-5.90); RED CELL DISTRIBUTION WIDTH 13.9 % (11.5-14.5); WHITE BLOOD COUNT (AUTO) 7.9 K/uL (4.5-11.0)
[2017-06-26 15:34] LABS: ANION GAP 5 mmol/L (8-16); CALCIUM, TOTAL 8.8 mg/dL (8.8-10.5); CARBON DIOXIDE 32 mmol/L (22-29); CHLORIDE 103 mmol/L (98-107); CREATININE 1.15 mg/dL (0.60-1.30); GLOMERULAR FILTR. RATE CALC > 60 mL/min (>60); POTASSIUM 3.1 mmol/L (3.5-5.1); SODIUM SERUM 140 mmol/L (136-145); UREA NITROGEN, BLOOD 17 mg/dL (7-18)
[2017-06-26 15:38] LABS: ALANINE AMINOTRANSFERASE 22 U/L (12-78); ALBUMIN 3.6 g/dL (3.4-5.0); ASPARTATE AMINOTRANSFERASE 23 U/L (15-37); BILIRUBIN,TOTAL 0.4 mg/dL (0.1-1.0); TOTAL PROTEIN, SERUM 7.7 g/dL (6.4-8.2)
[2017-06-26 16:44] VITALS: BP 155/108
== END 2017-06-26 18:11 | disposition short-term general hospital (02) ==
LOC: EMS 14:31
DX: S01.512D Laceration without foreign body of oral cavity, subsequent encounter (principal); C02.9 Malignant neoplasm of tongue, unspecified; K14.0 Glossitis; F20.9 Schizophrenia, unspecified; K21.9 Gastro-esophageal reflux disease without esophagitis; J44.9 Chronic obstructive pulmonary disease, unspecified; F17.210 Nicotine dependence, cigarettes, uncomplicated; X58.XXXD Exposure to other specified factors, subsequent encounter; Y92.89 Other specified places as the place of occurrence of the external cause; Y99.8 Other external cause status
CPT/HCPCS: 36415; 70491; 80053; 85025; 96365; 96375; 99285; 99406; G0480; J0690; J1100; J3490; J7030; J7050; Q9967

== ENCOUNTER 2017-06-29 13:43 | Emergency (ER) | payer MEDICAID ==
[~2017-06-29] VITALS: Ht 172.7 cm; Wt 61.8 kg
[2017-06-29 14:15] VITALS: BP 102/66
== END 2017-06-29 14:20 | disposition left against medical advice (07) ==
LOC: EMS 13:44
DX: S01.502A Unspecified open wound of oral cavity, initial encounter (principal); F20.0 Paranoid schizophrenia; F41.9 Anxiety disorder, unspecified; J44.9 Chronic obstructive pulmonary disease, unspecified; K21.9 Gastro-esophageal reflux disease without esophagitis; F17.210 Nicotine dependence, cigarettes, uncomplicated; X58.XXXA Exposure to other specified factors, initial encounter; Y93.89 Activity, other specified; Y92.89 Other specified places as the place of occurrence of the external cause; Y99.8 Other external cause status
CPT/HCPCS: 99284

== ENCOUNTER 2017-06-29 17:46 | Emergency (ER) | payer MEDICAID ==
[~2017-06-29] VITALS: Ht 162.6 cm; Wt 51.4 kg
[2017-06-29] MEDS ORDERED: MORPHINE SULFATE 4 MG/ML SYRINGE IVP ONE ×2 (19:30→22:30)
[2017-06-29] MEDS ORDERED: ONDANSETRON HCL 4 MG/2 ML VIAL IVP ONE (19:30)
[2017-06-29 19:53] LABS: BASOPHILS % (AUTO) 0.3 % (0.0-2.0); EOSINOPHILS % (AUTO) 1.1 % (1.0-6.0); HEMATOCRIT 41.9 % (41-53); HEMOGLOBIN 14.2 g/dL (13.5-17.5); LYMPHOCYTES # (AUTO) 1.2 K/uL (1.0-4.8); LYMPHOCYTES % (AUTO) 11.2 % (22.0-44.0); MEAN CORPUSCULAR HEMOGLOBIN 30.8 pg (26.0-34.0); MEAN CORPUSCULAR HGB CONC 33.8 G/dL (31.0-37.0); MEAN CORPUSCULAR VOLUME 91 fL (80-100); MONOCYTES % (AUTO) 9.8 % (2.0-9.0); NEUTROPHILS # (AUTO) 8.2 K/uL (1.8-7.7); NEUTROPHILS % (AUTO) 77.6 % (40.0-70.0); PLATELET COUNT (AUTO) 271 K/uL (150-450); RED CELL DISTRIBUTION WIDTH 14.1 % (11.5-14.5); WHITE BLOOD COUNT (AUTO) 10.6 K/uL (4.5-11.0)
[2017-06-29 20:03] LABS: CALCIUM, TOTAL 9.5 mg/dL (8.8-10.5); CREATININE 1.53 mg/dL (0.60-1.30); POTASSIUM 3.4 mmol/L (3.5-5.1)
[2017-06-29 20:10] LABS: ALBUMIN 3.6 g/dL (3.4-5.0); BILIRUBIN,TOTAL 0.4 mg/dL (0.1-1.0); TOTAL PROTEIN, SERUM 7.8 g/dL (6.4-8.2)
[2017-06-29] MEDS ORDERED: KETOROLAC TROMETHAMINE 30 MG/ML VIAL IVP ONE (21:00)
[2017-06-29 22:46] VITALS: BP 118/60
== END 2017-06-29 23:14 | disposition short-term general hospital (02) ==
LOC: EMS 17:49
DX: K14.8 Other diseases of tongue (principal); F20.0 Paranoid schizophrenia; R06.02 Shortness of breath; J44.9 Chronic obstructive pulmonary disease, unspecified; K21.9 Gastro-esophageal reflux disease without esophagitis; F17.210 Nicotine dependence, cigarettes, uncomplicated
CPT/HCPCS: 36415; 71010; 80053; 85025; 87040; 96374; 96375; 96376; 99285; J1885; J2270; J2405

== ENCOUNTER 2017-07-09 18:01 | Emergency (ER) | payer MEDICAID ==
[~2017-07-09] VITALS: Ht 170.2 cm; Wt 54.5 kg
[2017-07-09 19:19] VITALS: BP 123/75
== END 2017-07-09 19:21 | disposition home or self-care (01) ==
LOC: EMS 18:03
DX: C06.9 Malignant neoplasm of mouth, unspecified (principal); K14.8 Other diseases of tongue; J44.9 Chronic obstructive pulmonary disease, unspecified; K21.9 Gastro-esophageal reflux disease without esophagitis; F17.210 Nicotine dependence, cigarettes, uncomplicated
CPT/HCPCS: 99283; 99406

== ENCOUNTER 2020-12-03 06:35 | Day surgery (SDC) | payer MEDICAID ==
[2020-12-01 12:50] LABS: COVID AG,FIA SOURCE NASOPHARYNGEAL
[~2020-12-03 06:35] MED LIST changes: -BUPR150T3 PO; -DIVA500T69 PO; -IPRA4AER IH; -OMEP20 PO; -RISP3 PO; +SODIUM CHLORIDE 0.9% 1,000 ML ONE
[2020-12-03] MEDS ORDERED: SODIUM CHLORIDE 0.9% 1,000 ML IV ONE (07:00)
[2020-12-03] MEDS ORDERED: MIDAZOLAM HCL 2 MG/2 ML VIAL ONE (07:08)
[2020-12-03] MEDS ORDERED: FentaNYL CITRATE PF 100 MCG/2 ML VIAL ONE (07:08)
[2020-12-03] MEDS ORDERED: MethylPREDNISolone SOD SUCC 125 MG/2 ML VIAL ONE (09:44)
[2020-12-03] MEDS ORDERED: MethylPREDNISolone SOD SUCC 125 MG/2 ML VIAL IVP ONE (10:00)
[2020-12-03] MEDS ORDERED: LIDOCAINE 2% 30 ML JELLY ONE (18:16)
[2020-12-03] MEDS ORDERED: ALBUTEROL SULFATE 2.5 MG/0.5 ML NEB SOLUTION NEB ONE (18:16)
[2020-12-03] MEDS ORDERED: BENZOCAINE 20% 50 MCG/SPRAY 57 GM ONE (18:16)
[2020-12-03] MEDS ORDERED: LIDOCAINE 4% 50 ML SOLUTION ONE (18:16)
[2020-12-03] MEDS ORDERED: OXYGEN THERAPY IH SCH (20:00)
== END 2020-12-03 10:40 | disposition home or self-care (01) ==
LOC: SURGERY 06:35
PROVIDERS: ATTEND Internal Medicine Critical Care Medicine
DX: J38.4 Edema of larynx (principal); B37.0 Candidal stomatitis
CPT/HCPCS: 31623; 31624; 71045; 87070; 87101; 87206; 87220; 87426; 88108; 88184; 88185; 88312; C9803; J2250; J2930; J3010; J7030; 87015; J7613; Z7610

== ENCOUNTER 2021-08-04 09:27 | Emergency (ER) | payer MEDICARE, MEDICAID ==
[~2021-08-04] VITALS: Ht 170.2 cm; Wt 65.9 kg
[2021-08-04] MEDS ORDERED: BARIUM SULFATE 0.1% SUSPENSION 450 ML BOTTLE PEG ONE (10:00)
[2021-08-04] MEDS ORDERED: SODIUM CHLORIDE 0.9% 1,000 ML IV ONE (10:00)
[2021-08-04] MEDS ORDERED: HYDROCODONE/ACETAMINOPHEN 7.5-325 MG/15 ML SOLUTION UDCUP PEG ONE (10:00)
[2021-08-04 10:17] LABS: BASOPHILS % (AUTO) 0.5 % (0.0-2.0); EOSINOPHILS % (AUTO) 2.9 % (1.0-6.0); HEMATOCRIT 47.2 % (41-53); HEMOGLOBIN 15.5 g/dL (13.5-17.5); LYMPHOCYTES # (AUTO) 0.9 K/uL (1.0-4.8); LYMPHOCYTES % (AUTO) 16.3 % (22.0-44.0); MEAN CORPUSCULAR HEMOGLOBIN 30.8 pg (26.0-34.0); MEAN CORPUSCULAR HGB CONC 32.9 G/dL (31.0-37.0); MEAN CORPUSCULAR VOLUME 94 fL (80-100); MONOCYTES # (AUTO) 0.7 K/uL (0.1-1.0); MONOCYTES % (AUTO) 13.6 % (2.0-9.0); NEUTROPHILS # (AUTO) 3.6 K/uL (1.8-7.7); NEUTROPHILS % (AUTO) 66.7 % (40.0-70.0); PLATELET COUNT (AUTO) 180 K/uL (150-450); RED BLOOD CELL COUNT(AUTO) 5.04 MIL/uL (4.50-5.90); RED CELL DISTRIBUTION WIDTH 13.2 % (11.5-14.5)
[2021-08-04 10:24] LABS: CALCIUM, TOTAL 9.5 mg/dL (8.8-10.5); CREATININE 1.44 mg/dL (0.60-1.30); POTASSIUM 4.6 mmol/L (3.5-5.1)
[2021-08-04 10:30] LABS: ALBUMIN 3.5 g/dL (3.4-5.0); BILIRUBIN,TOTAL 0.3 mg/dL (0.1-1.0); TOTAL PROTEIN, SERUM 7.9 g/dL (6.4-8.2)
[2021-08-04] MEDS ORDERED: SODIUM CHLORIDE 0.9% 100 ML ONE (10:46)
[2021-08-04] MEDS ORDERED: IOHEXOL 350 MG/ML 100 ML VIAL ONE (10:46)
[2021-08-04 11:36] LABS: APPEARANCE,URINE CLEAR (CLEAR); BILIRUBIN,URINE NEGATIVE (NEGATIVE); GLUCOSE, URINE (UA) NEGATIVE (NEGATIVE); KETONES,URINE NEGATIVE (NEGATIVE); LEUKOCYTE ESTERASE ,URINE TRACE (NEGATIVE); NITRATE,URINE NEGATIVE (NEGATIVE); OCCULT BLOOD,URINE NEGATIVE (NEGATIVE); PH,URINE 5.5 (5.0-8.0); PROTEIN,URINE TRACE (NEGATIVE); UROBILINOGEN,URINE 0.2 mg/dL (<=1.0)
[2021-08-04 11:51] LABS: BACTERIA,URINE None Seen /HPF (None Seen); RBC,URINE None Seen /HPF (0-2); WBC,URINE 0-2 /HPF (0-5)
[2021-08-04 13:43] VITALS: BP 131/71
== END 2021-08-04 13:44 | disposition home or self-care (01) ==
LOC: EMS 09:38
DX: N50.3 Cyst of epididymis (principal); M17.0 Bilateral primary osteoarthritis of knee; K40.90 Unilateral inguinal hernia, without obstruction or gangrene, not specified as recurrent; J44.9 Chronic obstructive pulmonary disease, unspecified; K21.9 Gastro-esophageal reflux disease without esophagitis; F20.9 Schizophrenia, unspecified; F12.90 Cannabis use, unspecified, uncomplicated
CPT/HCPCS: 36415; 71045; 74177; 80053; 81001; 83690; 85025; 96360; 99285; J7050; Q9967

== ENCOUNTER 2022-06-01 11:06 | Inpatient (IN) | payer MEDICARE, MEDICAID ==
[~2022-06-01] VITALS: Ht 167.6 cm; Wt 67.7 kg
[2022-06-01] MEDS ORDERED: MENT113O13 TP (11:20)
[2022-06-01] MEDS ORDERED: FLUT16H NASAL (11:20)
[2022-06-01] MEDS ORDERED: GABA-1181 PO ×2 (11:20)
[2022-06-01] MEDS ORDERED: HYDR-4808 GT (11:20)
[2022-06-01] MEDS ORDERED: DOCU50LI25 GT (11:20)
[2022-06-01] MEDS ORDERED: METO10L GT (11:20)
[2022-06-01] MEDS ORDERED: MULT-1203 PO (11:20)
[2022-06-01] MEDS ORDERED: BENZ9GEL2 TP (11:20)
[2022-06-01] MEDS ORDERED: ASCO500 GT (11:20)
[2022-06-01] MEDS ORDERED: THIA100T92 GT (11:20)
[2022-06-01] MEDS ORDERED: MONT-35 GT (11:20)
[2022-06-01] MEDS ORDERED: ALBU8HFA IH (11:20)
[2022-06-01] MEDS ORDERED: FAMO20 GT (11:32)
[2022-06-01] MEDS ORDERED: AZIT-104 GT (11:32)
[2022-06-01] MEDS ORDERED: SUCR1TAB28 GT (11:32)
[2022-06-01] MEDS ORDERED: MAGN-169 GT (11:32)
[2022-06-01] MEDS ORDERED: ACET-66 GT (11:32)
[2022-06-01] MEDS ORDERED: DULO-114 GT (11:32)
[2022-06-01] MEDS ORDERED: PRED-729 GT (11:32)
[2022-06-01] MEDS ORDERED: ASPI81TA87 GT (11:33)
[2022-06-01 12:02] LABS: BASOPHILS % (AUTO) 0.2 % (0.0-2.0); EOSINOPHILS % (AUTO) 0.9 % (1.0-6.0); HEMATOCRIT 45.3 % (41-53); HEMOGLOBIN 15.3 g/dL (13.5-17.5); LYMPHOCYTES # (AUTO) 0.6 K/uL (1.0-4.8); LYMPHOCYTES % (AUTO) 5.9 % (22.0-44.0); MEAN CORPUSCULAR HEMOGLOBIN 31.2 pg (26.0-34.0); MEAN CORPUSCULAR HGB CONC 33.8 G/dL (31.0-37.0); MEAN CORPUSCULAR VOLUME 92 fL (80-100); MONOCYTES # (AUTO) 0.8 K/uL (0.1-1.0); MONOCYTES % (AUTO) 7.4 % (2.0-9.0); NEUTROPHILS # (AUTO) 9.4 K/uL (1.8-7.7); PLATELET COUNT (AUTO) 183 K/uL (150-450); RED BLOOD CELL COUNT(AUTO) 4.91 MIL/uL (4.50-5.90); RED CELL DISTRIBUTION WIDTH 14.1 % (11.5-14.5)
[2022-06-01 12:04] LABS: NEUTROPHILS % (AUTO) 85.6 % (40.0-70.0)
[2022-06-01 12:18] LABS: ALBUMIN 3.5 g/dL (3.4-5.0); BILIRUBIN,TOTAL 0.5 mg/dL (0.1-1.0); CALCIUM, TOTAL 9.3 mg/dL (8.8-10.5); CREATININE 1.22 mg/dL (0.60-1.30); POTASSIUM 4.2 mmol/L (3.5-5.1); TOTAL PROTEIN, SERUM 7.4 g/dL (6.4-8.2)
[2022-06-01] MEDS ORDERED: CHOL500013 GT (12:32)
[2022-06-01] MEDS ORDERED: FLUT220HFA PO (12:32)
[2022-06-01] MEDS ORDERED: GABA250S2 GT (12:32)
[2022-06-01] MEDS ORDERED: MULT-248 GT (12:38)
[2022-06-01] MEDS ORDERED: ONDANSETRON HCL 4 MG/2 ML VIAL IVP PRN (15:00)
[2022-06-01] MEDS ORDERED: ALBUTEROL SULFATE 2.5 MG/0.5 ML NEB SOLUTION NEB PRN (15:00)
[2022-06-01] MEDS ORDERED: ACETAMINOPHEN 325 MG TABLET PO PRN (15:00)
[2022-06-01] MEDS ORDERED: OxyCODONE HCL/ACETAMINOPHEN 5-325 MG TABLET PO PRN (15:00)
[2022-06-01] MEDS ORDERED: BISACODYL 10 MG RECTAL RECTAL SUPPOSITORY PR PRN (15:00)
[2022-06-01 15:57] LABS: COVID AG,FIA SOURCE NASOPHARYNGEAL
[2022-06-01] MEDS: HEPARIN SODIUM,PORCINE 5,000 UNITS/ML VIAL SQ SCH (16:01)
[2022-06-01 16:21] LABS: APPEARANCE,URINE CLEAR (CLEAR); BILIRUBIN,URINE NEGATIVE (NEGATIVE); GLUCOSE, URINE (UA) NEGATIVE (NEGATIVE); KETONES,URINE NEGATIVE (NEGATIVE); LEUKOCYTE ESTERASE ,URINE NEGATIVE (NEGATIVE); NITRATE,URINE NEGATIVE (NEGATIVE); OCCULT BLOOD,URINE NEGATIVE (NEGATIVE); PROTEIN,URINE NEGATIVE (NEGATIVE); SPECIFIC GRAVITIY, URINE 1.013 (1.003-1.030); UROBILINOGEN,URINE <=1.0 mg/dL (<=1.0)
[2022-06-01 17:45] LABS: CREATININE 1.21 mg/dL (0.60-1.30)
[2022-06-02] VITALS (7 sets, daily range): BP systolic 111–131; BP diastolic 56–100
[2022-06-02] MEDS: HEPARIN SODIUM,PORCINE 5,000 UNITS/ML VIAL SQ SCH ×3 (00:48→17:07)
[2022-06-02] MEDS: PANTOPRAZOLE SODIUM 40 MG/VIAL IVP SCH (11:13)
[2022-06-02] MEDS: IPRATROPIUM BROMIDE 0.5 MG/2.5 ML NEB SOLUTION NEB SCH ×2 (13:38→19:41)
[2022-06-02] MEDS: ALBUTEROL SULFATE 2.5 MG/0.5 ML NEB SOLUTION NEB SCH ×2 (13:38→19:41)
[2022-06-02 17:29] LABS: ANION GAP 11 mmol/L (8-16); CALCIUM, TOTAL 9.6 mg/dL (8.8-10.5); CARBON DIOXIDE 25 mmol/L (22-29); CHLORIDE 99 mmol/L (98-107); CREATININE 1.18 mg/dL (0.60-1.30); GLOMERULAR FILTR. RATE CALC > 60 mL/min (>60); GLUCOSE,RANDOM 112 mg/dL (70-110); PHOSPHORUS 3.7 mg/dL (2.5-4.9); POTASSIUM 4.3 mmol/L (3.5-5.1); SODIUM SERUM 135 mmol/L (136-145); UREA NITROGEN, BLOOD 24 mg/dL (7-18)
[2022-06-03] MEDS: IPRATROPIUM BROMIDE 0.5 MG/2.5 ML NEB SOLUTION NEB SCH ×2 (02:00→07:43)
[2022-06-03] MEDS: ALBUTEROL SULFATE 2.5 MG/0.5 ML NEB SOLUTION NEB SCH ×2 (02:00→07:43)
[2022-06-03 05:08] VITALS: BP 123/85
[2022-06-03 07:20] LABS: ANION GAP 7 mmol/L (8-16); CALCIUM, TOTAL 9.5 mg/dL (8.8-10.5); CARBON DIOXIDE 28 mmol/L (22-29); CHLORIDE 101 mmol/L (98-107); CREATININE 1.15 mg/dL (0.60-1.30); GLUCOSE,RANDOM 98 mg/dL (70-110); PHOSPHORUS 3.7 mg/dL (2.5-4.9); POTASSIUM 4.5 mmol/L (3.5-5.1); SODIUM SERUM 136 mmol/L (136-145); UREA NITROGEN, BLOOD 26 mg/dL (7-18)
[2022-06-03 07:23] LABS: GLOMERULAR FILTR. RATE CALC > 60 mL/min (>60)
[2022-06-03 07:29] VITALS: BP 124/89
[2022-06-03] MEDS: PANTOPRAZOLE SODIUM 40 MG/VIAL IVP SCH (07:59)
[2022-06-03] MEDS: HEPARIN SODIUM,PORCINE 5,000 UNITS/ML VIAL SQ SCH ×2 (07:59)
[2022-06-03 11:17] VITALS: BP 124/76
== END 2022-06-03 13:33 | disposition home or self-care (01) | DRG 640 ==
LOC: EMS 11:06 → 5S 21:30
PROVIDERS: ADMIT Internal Medicine; ATTEND Internal Medicine
DX: E87.1 Hypo-osmolality and hyponatremia (principal); G93.41 Metabolic encephalopathy; J44.9 Chronic obstructive pulmonary disease, unspecified; E55.9 Vitamin D deficiency, unspecified; F20.9 Schizophrenia, unspecified; Z20.822 Contact with and (suspected) exposure to COVID-19; F32.9 Major depressive disorder, single episode, unspecified; G40.909 Epilepsy, unspecified, not intractable, without status epilepticus; G62.9 Polyneuropathy, unspecified; K21.9 Gastro-esophageal reflux disease without esophagitis; R13.10 Dysphagia, unspecified; Z82.5 Family history of asthma and other chronic lower respiratory diseases; Z85.810 Personal history of malignant neoplasm of tongue; Z87.11 Personal history of peptic ulcer disease; Z87.891 Personal history of nicotine dependence; Z93.1 Gastrostomy status
CPT/HCPCS: 71045; 76770; 80048; 80053; 81003; 82533; 82570; 83690; 83735; 83935; 84100; 84133; 84300; 84443; 84484; 84540; 85025; 93005; 94640; 97161; 99285; C9113; G0378; J1644; 36415-L1; 36415-TC; J7613

== ENCOUNTER 2023-06-10 11:41 | Inpatient (IN) | payer MEDICARE, MEDICAID ==
[~2023-06-10] VITALS: Ht 162.6 cm; Wt 63.6 kg
[~2023-06-10 11:41] MED LIST changes: +ACET-66 GT; +ALBU18HF12 IH; +ASCO500 GT; +ASPI81TA87 GT; +CHOL500013 GT; +DOCU50LI40 GT; +FAMO20 GT; +FLUT12AE18 PO; +FLUT16SP NASAL; +GABA250S6 GT; +HYDR-4808 GT; +MAGN-169 GT; +MENT113O13 TP; +METO10L GT; +MONT-35 GT; +MULT-248 GT; +PRED-729 GT; -SODIUM CHLORIDE 0.9% 1,000 ML ONE; +SUCR1TAB28 GT; +THIA100T92 GT
[2023-06-10 12:52] LABS: BASOPHILS % (AUTO) 0.2 % (0.0-2.0); EOSINOPHILS % (AUTO) 1.2 % (1.0-6.0); HEMOGLOBIN 16.3 g/dL (13.5-17.5); LYMPHOCYTES # (AUTO) 0.9 K/uL (1.0-4.8); LYMPHOCYTES % (AUTO) 13.4 % (22.0-44.0); MEAN CORPUSCULAR HEMOGLOBIN 31.3 pg (26.0-34.0); MEAN CORPUSCULAR HGB CONC 32.6 G/dL (31.0-37.0); MEAN CORPUSCULAR VOLUME 96 fL (80-100); MONOCYTES # (AUTO) 0.7 K/uL (0.1-1.0); NEUTROPHILS # (AUTO) 4.9 K/uL (1.8-7.7); NEUTROPHILS % (AUTO) 75.2 % (40.0-70.0); PLATELET COUNT (AUTO) 182 K/uL (150-450); RED CELL DISTRIBUTION WIDTH 13.8 % (11.5-14.5); WHITE BLOOD COUNT (AUTO) 6.5 K/uL (4.5-11.0)
[2023-06-10 12:53] LABS: RBC MORPHOLOGY COMMENT NORMAL RBC MORPH
[2023-06-10 12:58] LABS: CALCIUM, TOTAL 9.6 mg/dL (8.8-10.5); CREATININE 1.26 mg/dL (0.60-1.30)
[2023-06-10 13:03] LABS: ALBUMIN 3.7 g/dL (3.4-5.0); BILIRUBIN,TOTAL 0.5 mg/dL (0.1-1.0); TOTAL PROTEIN, SERUM 7.6 g/dL (6.4-8.2)
[2023-06-10 13:04] LABS: AMMONIA 23 umol/L (11-32); TROPONIN I-HIGH SENSITIVITY 4 ng/L (<76)
[2023-06-10 13:05] LABS: LACTIC ACID 0.9 mmol/L (0.4-2.0)
[2023-06-10 15:28] LABS: APPEARANCE,URINE CLEAR (CLEAR); BILIRUBIN,URINE NEGATIVE (NEGATIVE); COLOR,URINE YELLOW (YELLOW); GLUCOSE, URINE (UA) NEGATIVE (NEGATIVE); KETONES,URINE NEGATIVE (NEGATIVE); LEUKOCYTE ESTERASE ,URINE NEGATIVE (NEGATIVE); NITRATE,URINE NEGATIVE (NEGATIVE); OCCULT BLOOD,URINE NEGATIVE (NEGATIVE); PROTEIN,URINE TRACE mg/dL (NEGATIVE); SPECIFIC GRAVITIY, URINE 1.029 (1.003-1.030); UROBILINOGEN,URINE <=1.0 mg/dL (<=1.0)
[2023-06-10 15:36] LABS: ALCOHOL, URINE DRUG SCREEN NEGATIVE (NEGATIVE); AMPHET/METH SCREEN,URINE NEGATIVE (NEGATIVE); BARBITURATE SCREEN, URINE NEGATIVE (NEGATIVE); BENZODIAZEPINES SCREEN,URINE NEGATIVE (NEGATIVE); CANNABINOID SCREEN,URINE NEGATIVE (NEGATIVE); COCAINE SCREEN,URINE NEGATIVE (NEGATIVE); METHADONE SCREEN, URINE NEGATIVE (NEGATIVE); OPIATE SCREEN,URINE NEGATIVE (NEGATIVE); PHENCYCLIDINE SCREEN,URINE NEGATIVE (NEGATIVE)
[2023-06-10] MEDS ORDERED: ACETAMINOPHEN 325 MG TABLET PO PRN (16:00)
[2023-06-10] MEDS ORDERED: SODIUM CHLORIDE 0.9% 1,000 ML IV ONE ×2 (16:00)
[2023-06-10] MEDS ORDERED: BISACODYL 10 MG RECTAL RECTAL SUPPOSITORY PR PRN (16:00)
[2023-06-10] MEDS ORDERED: ONDANSETRON HCL 4 MG/2 ML VIAL IVP PRN (16:00)
[2023-06-10] MEDS: HEPARIN SODIUM,PORCINE 5,000 UNITS/ML VIAL SQ SCH (16:35)
[2023-06-10] MEDS ORDERED: LORazepam 2 MG/ML VIAL IVP ONE (16:45)
[2023-06-10 21:11] VITALS: BP 106/72; PULSE 79; RESP 18; TEMP 97.6
[2023-06-11] MEDS: HEPARIN SODIUM,PORCINE 5,000 UNITS/ML VIAL SQ SCH ×2 (00:20→08:00)
[2023-06-11 05:24] VITALS: BP 102/69; PULSE 65; RESP 18; TEMP 97.5
[2023-06-11 07:34] VITALS: BP 114/72; PULSE 70; RESP 19; TEMP 98
[2023-06-11 08:55] LABS: ANION GAP 11 mmol/L (8-16); CALCIUM, TOTAL 8.6 mg/dL (8.8-10.5); CARBON DIOXIDE 25 mmol/L (22-29); CHLORIDE 102 mmol/L (98-107); CREATININE 1.13 mg/dL (0.60-1.30); GLOMERULAR FILTR. RATE CALC > 60 mL/min (>60); GLUCOSE,RANDOM 87 mg/dL (70-110); SODIUM SERUM 137 mmol/L (136-145); UREA NITROGEN, BLOOD 35 mg/dL (7-18)
[2023-06-11] MEDS ORDERED: PANTOPRAZOLE SODIUM 40 MG/VIAL IVP SCH (09:00)
== END 2023-06-11 10:22 | disposition home health service (06) | DRG 641 ==
LOC: EMS 11:41 → 6S 20:30
PROVIDERS: ADMIT Internal Medicine; ATTEND Internal Medicine
DX: E86.0 Dehydration (principal); E44.0 Moderate protein-calorie malnutrition; R62.7 Adult failure to thrive; J44.9 Chronic obstructive pulmonary disease, unspecified; K21.9 Gastro-esophageal reflux disease without esophagitis; F32.A Depression, unspecified; R13.10 Dysphagia, unspecified; F20.9 Schizophrenia, unspecified; Z79.82 Long term (current) use of aspirin; Z79.899 Other long term (current) drug therapy; Z85.818 Personal history of malignant neoplasm of other sites of lip, oral cavity, and pharynx; Z85.89 Personal history of malignant neoplasm of other organs and systems; Z93.1 Gastrostomy status; Z82.5 Family history of asthma and other chronic lower respiratory diseases; Z87.11 Personal history of peptic ulcer disease; Z68.24 Body mass index [BMI] 24.0-24.9, adult
CPT/HCPCS: 70450; 71045; 80048; 80053; 80307; 81003; 82140; 82550; 83605; 84484; 85025; 87040; 93005; 99285; C9113; G0378; J1644; J2060; J2405; J7030; 36415-L1; 36415-TC

== ENCOUNTER 2024-10-06 14:59 | Emergency (ER) | payer MEDICARE, MEDICAID ==
[~2024-10-06 14:59] MED LIST changes: -ASCO500 GT; -FLUT12AE18 PO; -FLUT16SP NASAL; -HYDR-4808 GT; -MAGN-169 GT; -MENT113O13 TP; -METO10L GT; -MONT-35 GT
[2024-10-07] MEDS ORDERED: OLAN5TAB77 PO (12:34)
== END 2024-10-06 15:28 | disposition left against medical advice (07) ==
LOC: EMS 14:59
DX: R45.1 Restlessness and agitation (principal); Z53.21 Procedure and treatment not carried out due to patient leaving prior to being seen by health care provider

== ENCOUNTER 2024-10-06 16:59 | Inpatient (IN) | payer MEDICARE, MEDICAID ==
[~2024-10-06] VITALS: Ht 167.6 cm; Wt 56.2 kg
[2024-10-06 19:09] LABS: BASOPHILS % (AUTO) 0.4 % (0.0-2.0); EOSINOPHILS % (AUTO) 0.6 % (1.0-6.0); HEMATOCRIT 48.4 % (41-53); HEMOGLOBIN 15.9 g/dL (13.5-17.5); LYMPHOCYTES # (AUTO) 0.5 K/uL (1.0-4.8); LYMPHOCYTES % (AUTO) 7.5 % (22.0-44.0); MEAN CORPUSCULAR HEMOGLOBIN 31.5 pg (26.0-34.0); MEAN CORPUSCULAR HGB CONC 32.9 G/dL (31.0-37.0); MEAN CORPUSCULAR VOLUME 96 fL (80-100); MONOCYTES # (AUTO) 0.9 K/uL (0.1-1.0); MONOCYTES % (AUTO) 12.4 % (2.0-9.0); NEUTROPHILS # (AUTO) 5.5 K/uL (1.8-7.7); NEUTROPHILS % (AUTO) 79.1 % (40.0-70.0); PLATELET COUNT (AUTO) 169 K/uL (150-450); RED BLOOD CELL COUNT(AUTO) 5.06 MIL/uL (4.50-5.90); RED CELL DISTRIBUTION WIDTH 13.7 % (11.5-14.5); WHITE BLOOD COUNT (AUTO) 6.9 K/uL (4.5-11.0)
[2024-10-06 19:13] LABS: ANION GAP 7 mmol/L (8-16); CALCIUM, TOTAL 9.3 mg/dL (8.8-10.5); CARBON DIOXIDE 31 mmol/L (22-29); CHLORIDE 103 mmol/L (98-107); CREATININE 1.61 mg/dL (0.60-1.30); GLOMERULAR FILTR. RATE CALC 43 mL/min (>60); GLUCOSE,RANDOM 100 mg/dL (70-110); POTASSIUM 4.2 mmol/L (3.5-5.1); SODIUM SERUM 141 mmol/L (136-145); UREA NITROGEN, BLOOD 47 mg/dL (7-18)
[2024-10-06 19:15] LABS: COVID AG,FIA SOURCE NASAL SWAB
[2024-10-06 19:21] LABS: ALCOHOL, BLOOD (SERUM) < 3 mg/dL (0-10)
[2024-10-06 19:34] LABS: SARS-COV2 (COVID) ANTIGEN,FIA Negative (Negative)
[2024-10-06] MEDS: HALOPERIDOL LACTATE 5 MG/ML VIAL IM ONE (21:10)
[2024-10-06] MEDS: DiphenhydrAMINE HCL 50 MG/ML VIAL IM ONE (21:10)
[2024-10-06] MEDS: LORazepam 2 MG/ML VIAL IM ONE (21:11)
[2024-10-06] MEDS: LORazepam 2 MG/ML VIAL IVP ONE (21:24)
[2024-10-06] MEDS: HYDROmorphone HCL 2 MG/ML SYRINGE IVP ONE (21:35)
[2024-10-06] MEDS: ONDANSETRON HCL 4 MG/2 ML VIAL IVP ONE (21:35)
[2024-10-06] MEDS: SODIUM CHLORIDE 0.9% 2,000 ML IV ONE (21:35)
[2024-10-06 21:51] LABS: CREATINE KINASE, TOTAL ONLY 80 U/L (39-308)
[2024-10-06 22:12] LABS: TROPONIN I-HIGH SENSITIVITY 4 ng/L (<76)
[2024-10-06] MEDS ORDERED: LORazepam 2 MG/ML VIAL IVP PRN (22:45)
[2024-10-06] MEDS ORDERED: ONDANSETRON HCL 4 MG/2 ML VIAL IVP PRN (22:45)
[2024-10-06] MEDS ORDERED: FAMOTIDINE 20 MG TABLET GT PRN (22:45)
[2024-10-06] MEDS ORDERED: BISACODYL 10 MG RECTAL RECTAL SUPPOSITORY PR PRN (22:45)
[2024-10-06] MEDS ORDERED: ACETAMINOPHEN 325 MG TABLET PO PRN (22:45)
[2024-10-06] MEDS ORDERED: MORPHINE SULFATE 2 MG/ML SYRINGE IVP PRN (22:45)
[2024-10-06] MEDS ORDERED: MAGNESIUM HYDROXIDE SUSPENSION 30 ML UDCUP PO PRN (22:45)
[2024-10-06] MEDS ORDERED: HYDROCODONE/ACETAMINOPHEN 5-325 MG TABLET PO PRN (22:45)
[2024-10-06] MEDS: MAGNESIUM SULFATE 2 GM, MVI, ADULT NO.1 WITH VIT K 10 ML, THIAMINE 100 MG, FOLIC ACID 1... IV ONE (23:11)
[2024-10-06] MEDS: HEPARIN SODIUM,PORCINE 5,000 UNITS/ML VIAL SQ SCH (23:18)
[2024-10-07 00:55] VITALS: BP 94/77; PULSE 68; RESP 18; TEMP 97.6; O2SAT 97
[2024-10-07 04:51] VITALS: BP 129/76; PULSE 74; RESP 19; TEMP 98.2; O2SAT 98
[2024-10-07 07:38] LABS: BASOPHILS % (AUTO) 0.7 % (0.0-2.0); EOSINOPHILS % (AUTO) 1.8 % (1.0-6.0); HEMOGLOBIN 16.3 g/dL (13.5-17.5); LYMPHOCYTES # (AUTO) 0.7 K/uL (1.0-4.8); LYMPHOCYTES % (AUTO) 16.2 % (22.0-44.0); MEAN CORPUSCULAR HEMOGLOBIN 31.7 pg (26.0-34.0); MEAN CORPUSCULAR HGB CONC 32.6 G/dL (31.0-37.0); MEAN CORPUSCULAR VOLUME 97 fL (80-100); MONOCYTES # (AUTO) 0.6 K/uL (0.1-1.0); MONOCYTES % (AUTO) 14.4 % (2.0-9.0); NEUTROPHILS # (AUTO) 2.8 K/uL (1.8-7.7); NEUTROPHILS % (AUTO) 66.9 % (40.0-70.0); PLATELET COUNT (AUTO) 106 K/uL (150-450); RED BLOOD CELL COUNT(AUTO) 5.14 MIL/uL (4.50-5.90); RED CELL DISTRIBUTION WIDTH 13.8 % (11.5-14.5); WHITE BLOOD COUNT (AUTO) 4.1 K/uL (4.5-11.0)
[2024-10-07 07:48] LABS: CALCIUM, TOTAL 8.4 mg/dL (8.8-10.5); CREATININE 1.27 mg/dL (0.60-1.30); POTASSIUM 4.2 mmol/L (3.5-5.1)
[2024-10-07] MEDS: ASPIRIN 81 MG DR TABLET GT SCH (08:17)
[2024-10-07] MEDS: CHOLECALCIFEROL (VIT D3) 5,000 [125 MCG] UNITS CAPSULE GT SCH (08:17)
[2024-10-07] MEDS: SUCRALFATE 1 GM TABLET GT SCH (08:18)
[2024-10-07] MEDS: PANTOPRAZOLE SODIUM 40 MG DR TABLET PO SCH (08:18)
[2024-10-07] MEDS: DOCUSATE SODIUM 100 MG CAPSULE PO SCH (08:18)
[2024-10-07 08:36] VITALS: BP 123/89; PULSE 76; RESP 19; TEMP 98.5; O2SAT 98
[2024-10-07] MEDS: PredniSONE 10 MG TABLET GT SCH (10:31)
[2024-10-07] MEDS ORDERED: OLAN5TAB77 PO (12:34)
[2024-10-07 13:59] LABS: APPEARANCE,URINE HAZY (CLEAR); BILIRUBIN,URINE NEGATIVE (NEGATIVE); COLOR,URINE YELLOW (YELLOW); GLUCOSE, URINE (UA) NEGATIVE (NEGATIVE); LEUKOCYTE ESTERASE ,URINE NEGATIVE (NEGATIVE); NITRATE,URINE NEGATIVE (NEGATIVE); OCCULT BLOOD,URINE NEGATIVE (NEGATIVE); PROTEIN,URINE 30-70 mg/dL (NEGATIVE); SPECIFIC GRAVITIY, URINE 1.026 (1.003-1.030); UROBILINOGEN,URINE <=1.0 mg/dL (<=1.0)
[2024-10-07 14:05] LABS: ALCOHOL, URINE DRUG SCREEN NEGATIVE (NEGATIVE); AMPHET/METH SCREEN,URINE POSITIVE (NEGATIVE); BARBITURATE SCREEN, URINE NEGATIVE (NEGATIVE); BENZODIAZEPINES SCREEN,URINE NEGATIVE (NEGATIVE); CANNABINOID SCREEN,URINE POSITIVE (NEGATIVE); COCAINE SCREEN,URINE NEGATIVE (NEGATIVE); METHADONE SCREEN, URINE NEGATIVE (NEGATIVE); OPIATE SCREEN,URINE NEGATIVE (NEGATIVE); PHENCYCLIDINE SCREEN,URINE NEGATIVE (NEGATIVE)
[2024-10-07 14:17] LABS: AMORPHOUS SEDIMENT,UR Moderate /LPF (None Seen); BACTERIA,URINE None Seen /HPF (None Seen); RBC,URINE None Seen /HPF (0-2); SQUAMOUS EPITHELIAL CELL,UR Few /LPF (None Seen); WBC,URINE None Seen /HPF (0-5)
[2024-10-07 19:48] VITALS: BP 117/67; PULSE 88; RESP 20; TEMP 98; O2SAT 98
[2024-10-07] MEDS: OLANZapine 5 MG TABLET PO SCH (21:04)
[2024-10-07] MEDS: SUCRALFATE 1 GM/10 ML SUSPENSION UDCUP GT SCH (21:04)
[2024-10-08] MEDS: ZOLPIDEM TARTRATE 5 MG TABLET PO PRN (01:42)
[2024-10-08 06:00] VITALS: BP 141/89; PULSE 91; RESP 18; TEMP 97.9; O2SAT 98
[2024-10-08 09:03] LABS: BASOPHILS % (AUTO) 0.3 % (0.0-2.0); EOSINOPHILS % (AUTO) 1.7 % (1.0-6.0); HEMATOCRIT 41.9 % (41-53); HEMOGLOBIN 14.1 g/dL (13.5-17.5); LYMPHOCYTES # (AUTO) 0.5 K/uL (1.0-4.8); LYMPHOCYTES % (AUTO) 13.3 % (22.0-44.0); MEAN CORPUSCULAR HGB CONC 33.7 G/dL (31.0-37.0); MEAN CORPUSCULAR VOLUME 95 fL (80-100); MONOCYTES # (AUTO) 0.5 K/uL (0.1-1.0); NEUTROPHILS % (AUTO) 73.7 % (40.0-70.0); PLATELET COUNT (AUTO) 127 K/uL (150-450); RED BLOOD CELL COUNT(AUTO) 4.41 MIL/uL (4.50-5.90); RED CELL DISTRIBUTION WIDTH 13.4 % (11.5-14.5); WHITE BLOOD COUNT (AUTO) 4.1 K/uL (4.5-11.0)
[2024-10-08 09:05] LABS: ANION GAP 7 mmol/L (8-16); CALCIUM, TOTAL 8.3 mg/dL (8.8-10.5); CARBON DIOXIDE 26 mmol/L (22-29); CHLORIDE 103 mmol/L (98-107); GLOMERULAR FILTR. RATE CALC > 60 mL/min (>60); GLUCOSE,RANDOM 99 mg/dL (70-110); POTASSIUM 4.1 mmol/L (3.5-5.1); SODIUM SERUM 136 mmol/L (136-145); UREA NITROGEN, BLOOD 28 mg/dL (7-18)
== END 2024-10-08 13:45 | disposition left against medical advice (07) | DRG 640 ==
LOC: EMS 16:59 → EDH 10-07 00:23 → 6S 10-07 00:40
PROVIDERS: ADMIT Internal Medicine; ATTEND Internal Medicine
DX: E86.0 Dehydration (principal); N17.0 Acute kidney failure with tubular necrosis; F20.0 Paranoid schizophrenia; J44.9 Chronic obstructive pulmonary disease, unspecified; F15.10 Other stimulant abuse, uncomplicated; Z20.822 Contact with and (suspected) exposure to COVID-19; K21.9 Gastro-esophageal reflux disease without esophagitis; G40.909 Epilepsy, unspecified, not intractable, without status epilepticus; F12.10 Cannabis abuse, uncomplicated; Z85.818 Personal history of malignant neoplasm of other sites of lip, oral cavity, and pharynx; Z93.1 Gastrostomy status; Z87.11 Personal history of peptic ulcer disease; Z79.899 Other long term (current) drug therapy; Z79.82 Long term (current) use of aspirin
CPT/HCPCS: 71045; 80048; 80307; 81001; 82550; 84484; 85025; 93005; 99285; G0480; J1171; J1200; J1630; J1644; J2060; J2405; J3411; J3475; J3490; J7030; 36415-L1; 36415-TC; J7512; Z7610

== ENCOUNTER 2025-03-15 09:50 | Emergency (ER) | payer MEDICARE, MEDICAID ==
[~2025-03-15] VITALS: Ht 170.2 cm; Wt 63.6 kg
[~2025-03-15 09:50] MED LIST changes: +ASCO500 GT; -ASPI81TA87 GT; +AZEL137S8 NASAL; +BUDE10.7 IH; +CLOP75TA83 GT; +DICL100G60 TP; -FAMO20 GT; +FAMO20 PO; +LIDO1ADH72 TP; +MAGN-169 GT; +METO10L GT; +OLAN5TAB77 PO; -PRED-729 GT; +SENN-374 GT
[2025-03-15 10:00] VITALS: TEMP 97.8
[2025-03-15] MEDS: KETOROLAC TROMETHAMINE 30 MG/ML VIAL IM ONE (10:20)
[2025-03-15 15:41] VITALS: BP 100/64; PULSE 80; RESP 18; O2SAT 98
== END 2025-03-15 18:50 | disposition home or self-care (01) ==
LOC: EMS 09:50
DX: M25.552 Pain in left hip (principal); J44.9 Chronic obstructive pulmonary disease, unspecified; F20.9 Schizophrenia, unspecified; Z98.890 Other specified postprocedural states; Z79.02 Long term (current) use of antithrombotics/antiplatelets; Z79.1 Long term (current) use of non-steroidal anti-inflammatories (NSAID); Z85.9 Personal history of malignant neoplasm, unspecified; Z79.899 Other long term (current) drug therapy; Y93.01 Activity, walking, marching and hiking
CPT/HCPCS: 99284; 73503; 73562; 96372; J1885

== ENCOUNTER 2025-06-30 17:47 | Emergency (ER) | payer MEDICARE, MEDICAID ==
[~2025-06-30] VITALS: Ht 170.2 cm; Wt 54.5 kg
[2025-06-30 17:53] VITALS: TEMP 97.5
[2025-06-30 18:11] LABS: COVID AG,FIA SOURCE NASAL SWAB
[2025-06-30 18:30] LABS: SARS-COV2 (COVID) ANTIGEN,FIA Negative (Negative)
[2025-06-30 18:37] LABS: INFLUENZA TYPE A NEGATIVE FOR TYPE A (NEGATIVE); INFLUENZA TYPE B NEGATIVE FOR TYPE B (NEGATIVE)
[2025-06-30] MEDS ORDERED: FLUC150T61 PO (20:28)
[2025-06-30 21:00] VITALS: BP 123/89; PULSE 89; RESP 18; O2SAT 97
[2025-06-30] MEDS: HYDROCODONE/ACETAMINOPHEN 7.5-325 MG/15 ML SOLUTION UDCUP PO ONE (21:06)
== END 2025-06-30 23:48 | disposition home or self-care (01) ==
LOC: EMS 17:47
DX: B37.9 Candidiasis, unspecified (principal); J44.9 Chronic obstructive pulmonary disease, unspecified; F20.9 Schizophrenia, unspecified; Z79.1 Long term (current) use of non-steroidal anti-inflammatories (NSAID); Z85.810 Personal history of malignant neoplasm of tongue; Z87.11 Personal history of peptic ulcer disease; Z20.822 Contact with and (suspected) exposure to COVID-19
CPT/HCPCS: 70360; 87804; 99284; Z7502

== ENCOUNTER → 2025-07-01 | Emergency (ER) | payer MEDICARE, MEDICAID ==
[~2025-07-01] VITALS: Ht 177.8 cm; Wt 68.2 kg
[~2025-07-01] MED LIST changes: +FLUC150T61 PO
[2025-07-01 16:48] VITALS: BP 105/68; PULSE 84; RESP 18; TEMP 98.1; O2SAT 99
== END | disposition left against medical advice (07) ==
LOC: EMS 16:16
DX: R06.02 Shortness of breath (principal); R05.9 Cough, unspecified; Z53.21 Procedure and treatment not carried out due to patient leaving prior to being seen by health care provider